=== PATIENT | female | born 1975 | race Caucasian/White ===

== ENCOUNTER → 2018-04-17 17:04 | Outpatient (CLI) | payer OTHER, SELFPAY ==
[2018-04-17 17:26] LABS: Absolute Lymphocyte Count 1.41 X10^3/ul (0.83-4.51); Absolute Neutrophil Count 4.9 X10^3/uL (2.0-7.7); Basophil# 0.02 X10^3/uL; Basophil% 0.3 % (0-1); Eosinophil# 0.19 X10^3/uL; Eosinophils% 2.6 % (0-5); Hemoglobin 13.8 g/dl (12.0-15.0); Lymphocyte # 1.41 X10^3/ul (4.0); Lymphocyte % 19.5 % (19-41); Mean Corp Hgb Conc 34.5 g/gl (32-36); Mean Corpuscular Hgb 31.9 pg (27.0-32.0); Mean Corpuscular Volume 92.6 fL (81-99); Mean Platelet Vol. 11.4 fl (6.2-12.0); Monocyte% 9.7 % (0-10); Neutrophil % 67.8 % (47-70); POSITIVE COUNT NO; POSITIVE DIFFERENTIAL NO; POSITIVE MORPHOLOGY NO; Platelet Count 200 K/mm3 (150-450); RBC Distribution Width CV 12.4 % (11.6-14.6); RBC Distribution Width SD 41.3 fl (35.1-43.9); Red Blood Count 4.32 M/mm3 (4.2-5.4); White Blood Count 7.2 K/mm3 (4.4-11.0)
[2018-04-17 19:16] LABS: HIV - WCH Non-Reactive (Nonreactive); Rubella IgG 45.4 IU/mL
[2018-04-17 22:26] LABS: Chlamydia Trachomatis by PCR Negative (Negative); Neisserai gonorrhoeae by PCR Negative (Negative); Probe Check PASS; Sample Adequacy Control PASS; Specimen Processing Control PASS
[2018-04-19 03:51] LABS: Rapid Plasmin Reagin (RPR) NONREACTIVE (NONREACTIVE)
[2018-04-19 10:29] LABS: HEPATITIS B SURFACE AG Negative (Negative)
== END ==
PROVIDERS: Family Provider Family Medicine; PCP Family Medicine; Referring Provider Obstetrics & Gynecology; Visit Provider Obstetrics & Gynecology
DX: Z34.90 Encounter for supervision of normal pregnancy, unspecified, unspecified trimester (principal)
CPT/HCPCS: 36415; 85025; 86592; 86703; 86762; 86850; 86870; 86900; 87086; 87340; 87491; 87591

== ENCOUNTER → 2018-04-25 16:15 | Outpatient (CLI) | payer OTHER, SELFPAY ==
[2018-04-17 16:21] VITALS: BMI 23.8
== END ==
PROVIDERS: Family Provider Family Medicine; PCP Family Medicine; Referring Provider Obstetrics & Gynecology; Visit Provider Obstetrics & Gynecology
DX: O36.1990 Maternal care for other isoimmunization, unspecified trimester, not applicable or unspecified (principal); Z3A.00 Weeks of gestation of pregnancy not specified
CPT/HCPCS: 36415

== ENCOUNTER → 2018-06-12 10:54 | Outpatient (CLI) | payer OTHER, SELFPAY ==
[2018-06-12 10:13] VITALS: BMI 24.7
[2018-06-12 13:03] LABS: Absolute Lymphocyte Count 0.85 X10^3/ul (0.83-4.51); Absolute Neutrophil Count 6.2 X10^3/uL (2.0-7.7); Basophil# 0.01 X10^3/uL; Basophil% 0.1 % (0-1); Eosinophil# 0.23 X10^3/uL; Eosinophils% 2.9 % (0-5); Hematocrit 38.8 % (37-47); Hemoglobin 13.2 g/dl (12.0-15.0); Lymphocyte # 0.85 X10^3/ul (4.0); Lymphocyte % 10.6 % (19-41); Mean Corpuscular Hgb 31.4 pg (27.0-32.0); Mean Corpuscular Volume 92.2 fL (81-99); Mean Platelet Vol. 11.7 fl (6.2-12.0); Monocyte# 0.72 X10^3/uL; Neutrophil # 6.18 X10^3/uL (2.7-7.7); Neutrophil % 77.3 % (47-70); POSITIVE COUNT NO; POSITIVE DIFFERENTIAL NO; POSITIVE MORPHOLOGY NO; Platelet Count 175 K/mm3 (150-450); RBC Distribution Width CV 12.8 % (11.6-14.6); Red Blood Count 4.21 M/mm3 (4.2-5.4)
== END ==
PROVIDERS: Family Provider Family Medicine; PCP Family Medicine; Referring Provider Obstetrics & Gynecology; Visit Provider Obstetrics & Gynecology
DX: O36.1990 Maternal care for other isoimmunization, unspecified trimester, not applicable or unspecified (principal); Z3A.00 Weeks of gestation of pregnancy not specified
CPT/HCPCS: 36415; 85025

== ENCOUNTER → 2018-08-16 15:59 | Outpatient (CLI) | payer OTHER, SELFPAY ==
[2018-08-16 15:41] VITALS: BMI 27.4
[2018-08-16 17:33] LABS: Absolute Lymphocyte Count 1.35 X10^3/ul (0.83-4.51); Absolute Neutrophil Count 5.2 X10^3/uL (2.0-7.7); Basophil# 0.01 X10^3/uL; Basophil% 0.1 % (0-1); Eosinophil# 0.34 X10^3/uL; Eosinophils% 4.5 % (0-5); Hematocrit 35.4 % (37-47); Hemoglobin 11.7 g/dl (12.0-15.0); Lymphocyte # 1.35 X10^3/ul (4.0); Lymphocyte % 17.8 % (19-41); Mean Corp Hgb Conc 33.1 g/gl (32-36); Mean Corpuscular Volume 96.7 fL (81-99); Mean Platelet Vol. 11.5 fl (6.2-12.0); Monocyte# 0.71 X10^3/uL; Monocyte% 9.4 % (0-10); Neutrophil # 5.15 X10^3/uL (2.7-7.7); Neutrophil % 68.1 % (47-70); POSITIVE COUNT NO; POSITIVE DIFFERENTIAL NO; POSITIVE MORPHOLOGY NO; Platelet Count 183 K/mm3 (150-450); RBC Distribution Width CV 12.9 % (11.6-14.6); RBC Distribution Width SD 43.4 fl (35.1-43.9); Red Blood Count 3.66 M/mm3 (4.2-5.4); White Blood Count 7.6 K/mm3 (4.4-11.0)
[2018-08-16 17:41] LABS: Glucose Challenge Gest 1H 50g 131 mg/dL (70-140)
== END ==
PROVIDERS: Family Provider Family Medicine; PCP Family Medicine; Referring Provider Obstetrics & Gynecology; Visit Provider Obstetrics & Gynecology
DX: O36.1990 Maternal care for other isoimmunization, unspecified trimester, not applicable or unspecified (principal); Z3A.00 Weeks of gestation of pregnancy not specified
CPT/HCPCS: 36415; 82950; 85025

== ENCOUNTER → 2018-09-11 15:43 | Outpatient (CLI) | payer OTHER, SELFPAY ==
[2018-08-30 15:13] VITALS: BMI 27.4
== END ==
PROVIDERS: Family Provider Family Medicine; PCP Family Medicine; Referring Provider Obstetrics & Gynecology; Visit Provider Obstetrics & Gynecology
DX: O36.1990 Maternal care for other isoimmunization, unspecified trimester, not applicable or unspecified (principal); Z3A.00 Weeks of gestation of pregnancy not specified
CPT/HCPCS: 36415; 86850; 86870

== ENCOUNTER → 2018-10-04 11:26 | Outpatient (CLI) | payer OTHER, SELFPAY ==
[2018-09-27 15:12] VITALS: BMI 27.4
== END ==
PROVIDERS: Family Provider Family Medicine; PCP Family Medicine; Referring Provider Obstetrics & Gynecology; Visit Provider Obstetrics & Gynecology
DX: O36.1990 Maternal care for other isoimmunization, unspecified trimester, not applicable or unspecified (principal); Z3A.00 Weeks of gestation of pregnancy not specified

== ENCOUNTER → 2018-10-25 17:50 | Outpatient (CLI) | payer OTHER, SELFPAY ==
[2018-10-25 15:45] VITALS: BMI 27.4
== END ==
PROVIDERS: Family Provider Family Medicine; PCP Family Medicine; Referring Provider Obstetrics & Gynecology; Visit Provider Obstetrics & Gynecology
DX: Z34.93 Encounter for supervision of normal pregnancy, unspecified, third trimester (principal)
CPT/HCPCS: 87081

== ENCOUNTER 2018-11-19 07:02 | Inpatient (IN) | payer OTHER, SELFPAY ==
[2018-11-18 15:51] VITALS: BMI 30.4
[2018-11-19] MEDS: Lactated Ringers 1,000 ML 50 ML IV ×2 (07:30→10:45)
[2018-11-19 07:44] LABS: Absolute Lymphocyte Count 1.02 X10^3/ul (0.83-4.51); Basophil# 0.01 X10^3/uL; Basophil% 0.2 % (0-1); Eosinophil# 0.18 X10^3/uL; Hematocrit 37.7 % (37-47); Hemoglobin 12.9 g/dl (12.0-15.0); Lymphocyte # 1.02 X10^3/ul (4.0); Lymphocyte % 17.2 % (19-41); Mean Corp Hgb Conc 34.2 g/gl (32-36); Mean Corpuscular Hgb 32.3 pg (27.0-32.0); Mean Corpuscular Volume 94.3 fL (81-99); Mean Platelet Vol. 12.3 fl (6.2-12.0); Monocyte# 0.69 X10^3/uL; Monocyte% 11.6 % (0-10); Neutrophil % 67.5 % (47-70); Platelet Count 151 K/mm3 (150-450); RBC Distribution Width CV 13.2 % (11.6-14.6); RBC Distribution Width SD 43.9 fl (35.1-43.9); White Blood Count 5.9 K/mm3 (4.4-11.0)
[2018-11-19 07:46] LABS: POSITIVE COUNT NO; POSITIVE DIFFERENTIAL NO; POSITIVE MORPHOLOGY NO
[2018-11-19] MEDS: Oxytocin 30 units/NS 500 ml 30 UNITS/500 ML IV.SOLN IV (07:53)
[2018-11-19 08:02] VITALS: BMI 29.2
[2018-11-19] MEDS: 0.9% Normal Saline 100 ML IV.SOLN. INTRA-UTER (08:06)
--- NOTE | 2018-11-19 12:47 | PCM.HP.OB ---
- Problem List (1) Anti-M isoimmunization affecting , antepartum Status: Acute Qualifiers: Fetus number: single or unspecified fetus Qualified Code(s): O36.1990 - Maternal care for other isoimmunization, unspecified trimester, not applicable or unspecified Comment: Very low titer anti m 1:4 check monthly. 2nd titer positive but too low to quantify (2) Supervision of high risk , antepartum Status: Acute Comment: PRR Edson 11/20/18 gender surprise PC Joseph, Shara Ortiz, Yolis Kunal (3) Advanced maternal age (AMA) in Status: Acute Comment: discussed genetic screening- declined. growth scan q 4 weeks after 32 and weekly nsts from 36 weeks on 10/30 growth normal (4) Status: Acute Qualifiers: Weeks of gestation: 39 weeks Qualified Code(s): Z3A.39 - 39 weeks gestation of Comment: genetic, carrier, NTD screening declined. [facility] Anatomy US-limited heart views due to position,07/15 anatomy completed normal History Date of Admission: 11/19/18 Final EDSON: 11/20/18 Gestational age: 39 Weeks and 6 Days History of this : This is a 43 year-old, at 39 weeks gestational age 6 days presents for IOL secondary to AMA. she has had a complicated by anti M antibody but it's been at the lowest possible level and no anemia documented. Surgical History: Surgical History (Last Reviewed 11/18/18 @ 15:54 by Zhanna Holley) H/O dilation and curettage Z98.890 Allergies penicillin G Allergy (Mild, Verified 11/18/18 15:51) Other Home Medications: Home Medications vitamin#30 30 mg iron-10 mg iron-folic acid 1 mg-omg3 capsule 1 cap PO DAILY cap 04/17/18 Smoking Status: Never smoker Alcohol: None Number of Fetus(es): 1 Heart Tracin moderate variability reactive no decelerations category I tracing [place]: none History Past Pregnancies: Past Pregnancies Pregancy History 6 Elective abortions Hx Para 4 Spontaneous abortions Hx # Term Pregnancies Ectopic pregnancies Hx # Pregnancies Multiple births # of living children Past Pregnancies Del. Date Name GA/Weeks Outcome Route Bth Weight Infant Gen Labor Lgth Anesthesia Del Locatn Provider FOB Unknown 2002 Joseph live - full term Saumya Unknown 2004 Diana live - full term Female Saumya Unknown 2006 Shara 40 live - full term Female [place], [place] Unknown 2009 Yolis 40 live - full term Female none [place], [place] Labs: Mom's Labs & Results 11/19/18 11/19/18 11/19/18 07:30 07:30 07:30 WBC 5.9 RBC 4.00 L Hgb 12.9 Hct 37.7 MCV 94.3 MCH 32.3 H MCHC 34.2 RDW 13.2 RDW Differential 43.9 Plt Count 151 MPV 12.3 H Immature Gran % (Auto) 0.500 Neut % (Auto) 67.5 Lymph % (Auto) 17.2 L [place] % (Auto) 11.6 H Eos % (Auto) 3.0 Baso % (Auto) 0.2 Absolute Neuts (auto) 4.0 Absolute Lymphs (auto) 1.02 Total Counted Not Reportable Blood Type A POSITIVE Antibody Screen POSITIVE H Antibody Identification ANTI-M Crossmatch See Detail Course Did the patient receive Yes care? Labs Blood Type: A RH: POSITIVE RPR/VDRL/Syphilis Nonreactive Rubella status Immune HbSAg Negative Date Done: 04/17/18 Chlamydia Negative Gonorrhea Negative HIV/AIDS Non-Reactive Group B Strep: Negative Current Obstetrical History Gestational Diabetes No Incompetent Cervix No Infertility No IUGR No Macrosomia No Hypertension/Pre-eclampsia No Placenta Previa/Abruption No PTL/PROM No Uterine anomaly No Oligohydramnios No Polyhydramnios No Multiple gestation No Past Medical History Asthma No Diabetes No Hypertension No Heart disease No Mitral valve prolapse No Neurologic/Seizure disorder/ No Migraines Kidney disease No Liver disease No Varicosities No Clotting disorders/Hx of DVT No Thyroid Dysfunction No Other medical diseases No Psychiatric disorders No Major trauma No Abnormal PAP smear Yes: scraped cervix prior to first preg. Sleep apnea No Mammogram in the last 2 years Yes: normal Social History Marital Status: Alleged father Kunal Benedict Hx Smoking No Smoking Status Never smoker Expected Infant Delivery Method: Spontaneous Vaginal Review of Systems Constitutional: Denies: Fever, Malaise Eyes: Denies: Blurred vision, Vision Change HEENT: Denies: Head Aches, Visual Changes Cardiovascular: Denies: Chest Pain, Palpitations Respiratory: Denies: Cough, Shortness of Breath, Wheezing Gastrointestinal: Denies: Abdominal Pain, Diarrhea, Nausea, Vomiting Genitourinary: Denies: Dysuria, Hematuria Musculoskeletal: Denies: Joint Pain, Muscle pain Skin: Denies: Lesions, Rash Neurological: Denies: Blurred vision, Focal weakness, Headaches Psychiatric: Denies: Anxiety, Depression Endocrine: Denies: Heat/ Cold Intolerance Hematologic/ Lymphatic: Denies: Easy Bruising, Easy Bleeding Physical Exam General: Alert, Cooperative, No apparent distress HEENT: Atraumatic, Normocephalic. Negative for: Thyromegaly, Lymphadenopathy Cardiovascular: Regular rate Lungs: Normal air movement Abdomen: Soft, Non Tender, Gravid Neurological: Deep Tendon Reflexes 2+/4 and Symmetrical, Neuro grossly intact. Negative for: Clonus SPEECH LANGUAGE PATHOLOGIST ASSISTANT: Normal external genitalia. Negative for: Vulvar lesions Estimated gestational size: Appropriate for gestational size Presentation: Cephalic Cervix Dilation (cm): 1.5 Station: -3 Effacement (%): 20 Assessment/Plan All Active Problems (Last Reviewed 11/18/18 @ 15:54 by Zhanna Holley) Anti-M isoimmunization affecting , antepartum (Acute) Supervision of high risk , antepartum (Acute) Advanced maternal age (AMA) in (Acute) (Acute) This is a 43 year-old, at 39 weeks gestational age presents IOL AMA Patient presents IOL, plan management for , pitocin/AROM after escoto bulb. Pain management: plans epidural. GBS negative Management of any complications: anti M titer- low level. I have reviewed the [facility] and made any clinically relevant updates.
--- NOTE | 2018-11-19 16:39 | CHAPLAIN ---
Type of Pastoral Visit _x__ Initial Visit ___ Follow-up Visit ___ On-call Visit ___ General Patient Visit ___ Spiritual Assessment ___ Family Conference ___ Bereavement ___ Rapid Response ___ Code Blue ___ Other (describe below) Pastoral Care Referral From _x__ Patient _x__ Family ___ Nurse ___ Physician ___ Label Stitcher ___ Perch Machine Inspector ___ Other (describe below) Sacrament/Intervention ___ Active listening ___ Anointing ___ Anabaptism ___ Bereavement ___ Communion ___ Hayde exploration ___ ___ Life review _x__ Prayer ___ Reconciliation ___ Sacrament of Sick _x__ Supportive presence ___ Wedding ___ Other (describe below) Pastoral Comments
[2018-11-19] MEDS: fentaNYL-bupivacaine (epidural) 100 ML BAG EPIDURAL (17:00)
[2018-11-19] MEDS: Oxytocin 30 units/NS 500 ml 30 UNITS/500 ML IV.SOLN 334 UNITS IV (19:50)
--- NOTE | 2018-11-19 19:58 | PCM.OPRPT ---
Problem List (1) Anti-M isoimmunization affecting , antepartum Status: Acute Qualifiers: Fetus number: single or unspecified fetus Qualified Code(s): O36.1990 - Maternal care for other isoimmunization, unspecified trimester, not applicable or unspecified Comment: Very low titer anti m 1:4 check monthly. 2nd titer positive but too low to quantify (2) Supervision of high risk , antepartum Status: Acute Comment: PRR Edson 11/20/18 gender surprise PC Joseph, Shara Ortiz, Yolis Kunal (3) Advanced maternal age (AMA) in Status: Acute Comment: discussed genetic screening- declined. growth scan q 4 weeks after 32 and weekly nsts from 36 weeks on 10/30 growth normal (4) Status: Acute Qualifiers: Weeks of gestation: 39 weeks Qualified Code(s): Z3A.39 - 39 weeks gestation of Comment: genetic, carrier, NTD screening declined. [facility] Anatomy US-limited heart views due to position,2/ anatomy completed normal Vaginal Delivery Maternal Presentation: Medically Indicated Induction iol ama Amniotic Membrane Rupture Type: Artificial Amniotic Fluid Description: Clear Final EDSON: 11/20/18 Gestational age: 39 weeks 6 days Date of Procedure: 11/19/18 Pre-Operative Diagnosis: iol ama Post-Operative Diagnosis: iol ama Surgery/ Procedure Performed: Spontaneous Vaginal Delivery Type of Anesthesia: Epidural Description of Procedure: Patient began pushing and delivered the head in the VAMSHI presentation. The head was delivered atraumatically. The anterior and posterior shoulders delivered without complication followed by the rest of the infant and the infant was placed on the maternal abdomen. Delayed cord clamping was employed for approximately 60 seconds. Cord was clamped and cut and gentle traction was applied to the cord and the placenta delivered spontaneously immediately following it was noted to be intact with three-vessel cord. The perineum and vagina were inspected and noted to have no laceration. Patient and tolerated delivery well. Presentation: VAMSHI Placental Delivery Description: Spontaneous Placenta Disposition: [facility] Cord Vessel Description: 3 Vessels Cord Entanglement: None Infant A gender: Male Episiotomy Description: None Laceration: None Medications given after delivery: IV Pitocin Complications: None
[2018-11-19] MEDS: Oxytocin 30 units/NS 500 ml 30 UNITS/500 ML IV.SOLN 167 UNITS IV (20:21)
[2018-11-19] MEDS: Naproxen 250 MG Tablet 500 MG PO (22:38)
[2018-11-20 00:54] VITALS: BP 119/67; PULSE 80; RESP 18; TEMP 36.4
[2018-11-20] MEDS: Acetaminophen 500 MG Tablet 1000 MG PO (01:28)
[2018-11-20 04:59] VITALS: BP 128/67; PULSE 75; RESP 18; TEMP 36.3
--- NOTE | 2018-11-20 07:43 | PCM.PN.OB ---
Subjective: doing well no complaints pain controlled no CP SOB N V ambulating well tolerating po lochia moderate, going well - Physical Exam General: Alert, Oriented x3 Abdomen: Soft, Non Tender, Non-Distended, - - FF below U Vital Signs Temp Pulse Resp BP 97.3 F L 75 18 128/67 H 11/20/18 04:59 11/20/18 04:59 11/20/18 04:59 11/20/18 04:59 Oxygen Delivery Method Room Air Weight: 187 lb 2.759 oz Body Mass Index (BMI) 29.2 Intake and Output for Last 24 Hours 11/18/18 11/19/18 11/20/18 23:59 23:59 23:59 Intake Total 2640 / 2640 Output Total 900 / 900 400 / 400 Balance 1740 / 1740 -400 / -400 Laboratory Tests Past 24 Hrs 11/19/18 11/19/18 11/19/18 07:30 07:30 07:30 WBC 5.9 RBC 4.00 L Hgb 12.9 Hct 37.7 MCV 94.3 MCH 32.3 H MCHC 34.2 RDW 13.2 RDW Differential 43.9 Plt Count 151 MPV 12.3 H Immature Gran % (Auto) 0.500 Neut % (Auto) 67.5 Lymph % (Auto) 17.2 L [place] % (Auto) 11.6 H Eos % (Auto) 3.0 Baso % (Auto) 0.2 Absolute Neuts (auto) 4.0 Absolute Lymphs (auto) 1.02 Total Counted Not Reportable Blood Type A POSITIVE Antibody Screen POSITIVE H Antibody Identification ANTI-M Crossmatch See Detail Medical Necessity - Tobacco Use Smoking Status: Never smoker Assessment/Plan All Active Problems (Last Reviewed 11/18/18 @ 15:54 by Zhanna oHlley) Anti-M isoimmunization affecting , antepartum (Acute) Supervision of high risk , antepartum (Acute) Advanced maternal age (AMA) in (Acute) (Acute) s/p PPD # 1 1. routine post delivery care 2. breast feeding- support given 3. rh positive 4. rubella immune 5. Monitor anti M antibody status prn
[2018-11-20 08:00] VITALS: BP 102/62; PULSE 78; RESP 12; TEMP 36.9
[2018-11-20 11:56] VITALS: BP 107/63; PULSE 83; RESP 14; TEMP 37.4
[2018-11-20 15:27] VITALS: BP 104/57; PULSE 72; RESP 14; TEMP 37.4
--- NOTE | 2018-11-20 16:48 | CHAPLAIN ---
Type of Pastoral Visit ___ Initial Visit _x__ Follow-up Visit ___ On-call Visit ___ General Patient Visit ___ Spiritual Assessment ___ Family Conference ___ Bereavement ___ Rapid Response ___ Code Blue ___ Other (describe below) Pastoral Care Referral From _x__ Patient _x__ Family ___ Nurse ___ Physician ___ Sales And Events Coordinator ___ Concierge ___ Other (describe below) Sacrament/Intervention _x__ Active listening ___ Anointing ___ Jewish ___ Bereavement ___ Communion ___ Hayde exploration ___ ___ Life review _x__ Prayer ___ Reconciliation ___ Sacrament of Sick ___ Supportive presence ___ Wedding ___ Other (describe below) Pastoral Comments
[2018-11-20 20:20] VITALS: BP 105/62; PULSE 70; RESP 16; TEMP 36.6; O2SAT 99
[2018-11-21 01:30] VITALS: BP 129/68; PULSE 69; RESP 18; TEMP 37.1
--- NOTE | 2018-11-21 07:41 | PCM.PN.OB ---
Subjective: doing well no complaints pain controlled no CP SOB N V ambulating well tolerating po lochia moderate, going well - Physical Exam General: Alert, Oriented x3 Abdomen: Soft, Non Tender, Non-Distended, - - FF at U Vital Signs Temp Pulse Resp BP Pulse Ox 98.7 F 69 18 129/68 H 99 11/21/18 01:30 11/21/18 01:30 11/21/18 01:30 11/21/18 01:30 11/20/18 20:20 Oxygen Delivery Method Room Air Weight: 187 lb 2.759 oz Body Mass Index (BMI) 29.2 Intake and Output for Last 24 Hours 11/19/18 11/20/18 11/21/18 23:59 23:59 23:59 Intake Total 2640 / 2640 Output Total 900 / 900 400 / 400 Balance 1740 / 1740 -400 / -400 Medical Necessity - Tobacco Use Smoking Status: Never smoker Assessment/Plan All Active Problems (Last Reviewed 11/18/18 @ 15:54 by Zhanna Holley) Anti-M isoimmunization affecting , antepartum (Acute) Supervision of high risk , antepartum (Acute) Advanced maternal age (AMA) in (Acute) (Acute)
--- NOTE | 2018-11-21 07:44 | DCINST_ITS ---
Additional Instructions: If you experience any of the following, contact your healthcare provider. * Bleeding that soaks a pad every hour for 2 hours * Fever 100.4 or higher * Unrelieved incision or abdominal pain * Swelling, redness, discharge or bleeding from your incision or episiotomy site * Your incision begins to separate * Problems urinating (including inability to urinate or burning while urinating). * Visual changes * Severe headache * Flu-like symptoms * Pain or redness in one of both of your breasts * Pain, warmth, tenderness or swelling in your legs, especially the calf area * Frequent nausea and vomiting * Symptoms of depression or anxiety If you experience any of the following, call 911 or go to the nearest Emergency Room. * Chest pain * Problems breathing * Seizure activity * Partial or complete paralysis of a body part, slurred speech, weakness or drooping of the face, or a sudden inability to walk or hold your balance Allergies/Adverse Reactions: Allergies penicillin G Allergy (Mild, Verified 11/18/18 15:51) Other Medications to take at Discharge vitamin#30 30 mg iron-10 mg iron-folic acid 1 mg-omg3 capsule 1 cap PO DAILY cap 04/17/18 Primary Care Physician: Dante Fried MD [Primary Care Provider] - Test Results: Test results from this visit will be discussed in further detail at your follow- up appointment, if applicable.
--- NOTE | 2018-11-21 07:44 | PCM.DCVAG ---
Additional Instructions: If you experience any of the following, contact your healthcare provider. Bleeding that soaks a pad every hour for 2 hours Fever 100.4 or higher Unrelieved incision or abdominal pain Swelling, redness, discharge or bleeding from your incision or episiotomy site Your incision begins to separate Problems urinating (including inability to urinate or burning while urinating). Visual changes Severe headache Flu-like symptoms Pain or redness in one of both of your breasts Pain, warmth, tenderness or swelling in your legs, especially the calf area Frequent nausea and vomiting Symptoms of depression or anxiety If you experience any of the following, call 911 or go to the nearest Emergency Room. Chest pain Problems breathing Seizure activity Partial or complete paralysis of a body part, slurred speech, weakness or drooping of the face, or a sudden inability to walk or hold your balance Allergies/Adverse Reactions: Allergies penicillin G Allergy (Mild, Verified 11/18/18 15:51) Other Medications to take at Discharge vitamin#30 30 mg iron-10 mg iron-folic acid 1 mg-omg3 capsule 1 cap PO DAILY cap 04/17/18 Primary Care Physician: Dante Fried MD [Primary Care Provider] - Test Results: Test results from this visit will be discussed in further detail at your follow-up appointment, if applicable.
[2018-11-21 08:00] VITALS: BP 121/62; PULSE 78; RESP 17; TEMP 36.7; O2SAT 99
== END 2018-11-21 10:10 | disposition home or self-care (01) | DRG 807 ==
PROVIDERS: Admitting Provider Obstetrics & Gynecology; Family Provider Family Medicine; PCP Family Medicine; Referring Provider Obstetrics & Gynecology; Visit Provider Obstetrics & Gynecology
DX: O36.1930 Maternal care for other isoimmunization, third trimester, not applicable or unspecified (principal); Z3A.39 39 weeks gestation of pregnancy; Z37.0 Single live birth
CPT/HCPCS: 59025; 59050; 85025; 86850; 86870; 86900; 86902; 86920; 86922; 99218; J7120; G0378

== ENCOUNTER → 2019-01-08 17:52 | Outpatient (CLI) | payer OTHER, SELFPAY ==
[2019-01-08 08:56] VITALS: BMI 29.2
[2019-01-14 16:58] LABS: HPV APTIMA, High Risk Negative (Negative)
== END ==
PROVIDERS: Family Provider Family Medicine; PCP Family Medicine; Referring Provider Obstetrics & Gynecology; Visit Provider Obstetrics & Gynecology
DX: Z12.4 Encounter for screening for malignant neoplasm of cervix (principal)
CPT/HCPCS: 87624; 88175; G0145

== ENCOUNTER → 2020-01-29 09:54 | Outpatient (CLI) | payer OTHER, SELFPAY ==
[2020-01-15 08:37] VITALS: BMI 29.2
[2020-01-29 11:35] LABS: Vitamin D,25 Hydroxy 41.3 ng/mL
[2020-01-29 11:54] LABS: ALB/GLOB Ratio 1.1 RATIO (0.9-2.4); AST(SGOT) 18 U/L (15-37); Alanine Aminotransfer ALT/SGPT 17 U/L (13-56); Albumin, Serum 3.9 g/dL (3.2-5.0); Alkaline Phosphatase 48 U/L (45-117); Anion Gap 4 (5-15); BUN 14 mg/dL (7-18); BUN/Creat Ratio 16.5 RATIO (10-20); Calcium,Total 8.6 mg/dL (8.5-10.1); Chloride 107 mmol/L (98-107); Cholesterol 198 mg/dL (200); Creatinine, Serum 0.85 mg/dL (0.55-1.02); EST Glomerular Filtration Rate 77 mL/min (>60); Est Glom Filt Rate - Afr Amer 93 mL/min (>60); Globulin 3.6 g/dL (2.2-4.2); Glucose 83 mg/dL (74-106); High Density Lipoprotein 66 mg/dL; Potassium 3.9 mmol/L (3.5-5.1); Protein, Total 7.5 g/dL (6.4-8.2); Sodium Level 139 mmol/L (136-145); Triglycerides 73 mg/dL; Very Low Density Lipoprotein 15 mg/dL (5-40)
--- NOTE | 2020-01-29 12:37 | BI_ITS ---
MAMMOGRAPHY - BILATERAL SCREENING 3-D TOMOSYNTHESIS REASON FOR EXAM: Female, 45 years old. Annual screening mammogram. PERTINENT HISTORY: 12/28/2016, 12/14/2015. TECHNIQUE: 2-D mammograms and 3-D Tomosynthesis of the breast (s) were performed. CAD was performed. COMPARISON: None. FINDINGS: The breast composition is Scattered benign calcifications are seen. No dense spiculated masses or suspicious microcalcifications are identified. No architectural distortion is identified. There is no skin thickening or retraction. There has been no significant change since the prior study. BI/SCREEN MAMM (CAD) W/MARIA L BILAT IMPRESSION: No mammographic signs of malignancy. Routine yearly mammograms recommended. ASSESSMENT CATEGORY: BIRADS Category 2: Benign. A letter regarding these results will be sent to the patient by the facility within 30 days. FOLLOW UP RECOMMENDATION: Yearly follow up mammogram recommended. (A) Approximately 10% of breast cancers are not detected by mammography. A normal mammogram should not delay biopsy of a clinically suspicious abnormality. Electronically Signed: Austin Nunez MD at 17:43 EDT , Service support ,
== END ==
PROVIDERS: PCP Family Medicine; Referring Provider Obstetrics & Gynecology; Visit Provider Obstetrics & Gynecology
DX: Z12.31 Encounter for screening mammogram for malignant neoplasm of breast (principal); Z13.220 Encounter for screening for lipoid disorders; Z13.21 Encounter for screening for nutritional disorder; Z13.29 Encounter for screening for other suspected endocrine disorder
CPT/HCPCS: 36415; 77063; 77067; 80053; 80061; 82306; 84443

== ENCOUNTER → 2021-02-17 11:53 | Outpatient (CLI) | payer OTHER, SELFPAY ==
[2020-01-15 08:37] VITALS: BMI 29.2
--- NOTE | 2021-02-17 11:55 | BI_ITS ---
MAMMOGRAPHY - BILATERAL SCREENING REASON FOR EXAM: Female, 46 years old. Routine annual screening examination. PERTINENT HISTORY: Non-contributory. TECHNIQUE: Digital bilateral breast maria l (3D mammographic acquisition) in the CC and MLO projections. 2-D mediolateral oblique (MLO) and craniocaudad (CC) views of both breasts were obtained. CAD: Full Field Digital Mammography with Computer Added Detection was performed. COMPARISON: Comparison is made with prior study 01/29/2020 and 12/28/2016. FINDINGS: Breast Composition: The breasts are heterogeneously dense, which may obscure small masses. There are no dominant masses or suspicious calcifications. Stable small benign appearing bilateral axillary lymph nodes. No other significant abnormalities are identified. There has been no significant change since the prior study. BI/SCRN MAMM (CAD)W/MARIA L BILAT IMPRESSION: Stable bilateral screening mammogram. Yearly follow-up mammogram recommended. (A) ASSESSMENT CATEGORY: BIRADS Category 2: Benign. A letter regarding these results will be sent to the patient by the facility within 30 days. Approximately 10% of breast cancers are not detected by mammography. A normal mammogram should not delay biopsy of a clinically suspicious abnormality. [id number] Electronically Signed: Harry Forman MD at 12:39 EDT , Service support ,
== END ==
PROVIDERS: PCP Family Medicine; Referring Provider Obstetrics & Gynecology; Visit Provider Obstetrics & Gynecology
DX: Z12.31 Encounter for screening mammogram for malignant neoplasm of breast (principal)
CPT/HCPCS: 77063; 77067

== ENCOUNTER → 2022-04-12 | Outpatient (CLI) | payer OTHER, SELFPAY ==
--- NOTE | 2022-04-12 12:47 | BI_ITS ---
MAMMOGRAPHY - BILATERAL SCREENING REASON FOR EXAM: Female, 47 years old. Routine annual screening examination. PERTINENT HISTORY: Non-contributory. TECHNIQUE: Digital bilateral breast maria l (3D mammographic acquisition) in the CC and MLO projections. 2-D mediolateral oblique (MLO) and craniocaudad (CC) views of both breasts were obtained. CAD: Full Field Digital Mammography with Computer Added Detection was performed. COMPARISON: Comparison is made with prior study dated 02/17/2021 and 01/29/2020. FINDINGS: Breast Composition: The breasts are heterogeneously dense, which may obscure small masses. There are no dominant masses or suspicious calcifications. No other significant abnormalities are identified. There has been no significant change since the prior study. BI/SCRN MAMM (CAD)W/MARIA L BILAT IMPRESSION: Stable bilateral screening mammogram. Yearly follow-up mammogram recommended. (A) ASSESSMENT CATEGORY: BIRADS Category 1: Negative. A letter regarding these results will be sent to the patient by the facility within 30 days. Approximately 10% of breast cancers are not detected by mammography. A normal mammogram should not delay biopsy of a clinically suspicious abnormality. [id number] Electronically Signed: Harry Forman MD at 13:36 EDT ,
== END | disposition home or self-care (01) ==
LOC: OPBI 12:46
PROVIDERS: PCP Family Medicine; Visit Provider Obstetrics & Gynecology
DX: Z12.31 Encounter for screening mammogram for malignant neoplasm of breast (principal)
CPT/HCPCS: 77063; 77067

== ENCOUNTER 2023-07-11 10:46 | Emergency (ER) | payer OTHER, SELFPAY ==
[2023-07-11 10:47] VITALS: BP 118/71; PULSE 75; RESP 16; TEMP 36.8; O2SAT 100; BMI 23.8
[2023-07-11 12:23] LABS: Absolute Lymphocyte Count 0.77 X10^3/uL (0.83-4.51); Absolute Neutrophil Count 7.8 X10^3/uL (2.0-7.7); Basophil# 0.03 X10^3/uL; Basophil% 0.3 % (0-1); Eosinophil# 0.07 X10^3/uL; Eosinophils% 0.8 % (0-5); Hematocrit 44.1 % (37-47); Hemoglobin 14.8 g/dL (12.0-15.0); Lymphocyte # 0.77 X10^3/ul (0.83-4.51); Lymphocyte % 8.4 % (19-41); Mean Corp Hgb Conc 33.6 g/dL (32-36); Mean Corpuscular Volume 92.5 fL (81-99); Mean Platelet Vol. 11.3 fl (6.2-12.0); Monocyte# 0.47 X10^3/uL; Monocyte% 5.1 % (0-10); NRBC Flagged by Analyzer 0 % (0-5); Neutrophil # 7.81 X10^3/uL (2.7-7.7); Neutrophil % 85.1 % (47-70); Platelet Count 217 K/mm3 (150-450); RBC Distribution Width CV 12.2 % (11.6-14.6); RBC Distribution Width SD 41.6 fl (35.1-43.9); Red Blood Count 4.77 M/mm3 (4.2-5.4); White Blood Count 9.2 K/mm3 (4.4-11.0)
[2023-07-11 12:36] LABS: Prothrombin Time (Protime)PT. 13.6 SECONDS (11.7-14.9)
[2023-07-11 12:37] LABS: Anion Gap 3 (5-15); BUN 10 mg/dL (7-18); BUN/Creat Ratio 14.7 RATIO (10-20); Calcium,Total 8.6 mg/dL (8.5-10.1); Chloride 105 mmol/L (98-107); Creatinine, Serum 0.68 mg/dL (0.55-1.02); EST Glomerular Filtration Rate 98 mL/min (>60); Est Glom Filt Rate - Afr Amer 119 mL/min (>60); Estimated Creatinine Clearance 98.39 ml/min; Glucose 102 mg/dL (74-106); Partial Thromboplast Time 29.7 Seconds (24.1-36.2); Sodium Level 133 mmol/L (136-145)
--- NOTE | 2023-07-11 13:00 | RAD_ITS ---
STUDY: X-RAY CHEST REASON FOR EXAM: Female, 48 years old. Stroke TECHNIQUE: Single AP portable view of the chest. COMPARISON: None. FINDINGS: The lungs are clear and expanded. There is no demonstrated pleural abnormality. Normal size heart. Normal mediastinum and zehra. Normal visualized pulmonary arteries. Normal visualized aortic arch and descending thoracic aorta. Normal visualized thoracic spine. Normal visualized ribs, clavicles, and shoulders. There is no demonstrated abnormality of the visualized soft tissue structures of the upper abdomen. RAD/Chest 1 View (Portable) IMPRESSION: Normal x-ray examination of the chest. Electronically Signed: Harry Forman MD at 13:16 EST ,
--- NOTE | 2023-07-11 13:04 | NURSING ---
NO OLD EKGS
[2023-07-11 13:09] VITALS: O2SAT 100
[2023-07-11 14:00] VITALS: RESP 16
[2023-07-11] MEDS: Meclizine HCl 25 MG Tablet PO (14:58)
[2023-07-11] MEDS: Ondansetron ODT 4 MG Tablet PO (14:59)
[2023-07-11 15:00] VITALS: RESP 16
--- NOTE | 2023-07-11 15:02 | EX.ED.DYSGE1 ---
HPI History of Present Illness Chief Complaint: Dizziness Informant: patient and spouse/S.O. Narrative Narrative: 48-year-old female presenting to the emergency room with lightheadedness/dizziness/off-balance. Patient states that she frequently gets earwax that needs to be irrigated out. She states she went to urgent care to have this done and was feeling lightheaded/dizzy. She states that they attempted to irrigate it and got significantly worse. She feels like the ear right ear is now completely occluded. No vomiting but does have some nausea. No headache. No visual disturbance. notes that there has been times on vacation where she is getting water in the ear that she has described a similar sensation. 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 ROS ROS ED ROS Narrative Feeling of lightheaded/dizzy/wobbly Constitutional Constitutional ED: Denies chills, fever(s) or weight loss Eyes Eyes: Denies change in vision or diplopia ENT ENT ED: Reports other Details: Decreased hearing right ear cerumen impaction ; Denies ear pain, rhinorrhea or sore throat Cardiovascular Cardiovascular: Denies chest pain, orthopnea, palpitations or racing heartbeat Respiratory/Chest Respiratory/Chest: Denies cough, dyspnea or orthopnea Gastrointestinal Gastrointestinal: Denies abdominal pain, diarrhea, nausea or vomiting Genitourinary Genitourinary ED: Denies dysuria, hematuria or urinary frequency Musculoskeletal Musculoskeletal: Denies arthralgias or myalgias Integumentary Denies abscess or rash Neurologic Neurologic: Denies headache(s) or weakness Psychiatric Psychiatric: Denies anxiety, depression, suicidal ideation or suicidal thoughts Endocrine Endocrinology: Denies polydipsia, polyphagia or polyuria Allergic/Immunologic Allergic/Immunologic ED: Denies mouth swelling, tongue swelling or urticaria EXAM Physical Exam Narrative Exam Narrative: Patient is able to lie in the bed with her eyes open and turn her head and speak. She can sit up states that up seems to make her lightheadedness worse. Const Vital Signs: 07/11/23 10:47 07/11/23 13:09 07/11/23 14:00 Temperature 98.2 F Temperature Source Temporal Pulse Rate 75 Respiratory Rate 16 16 Blood Pressure 118/71 Blood Pressure Mean 86 Pulse Ox 100 100 Oxygen Delivery Method Room Air Room Air Positive well nourished and well developed General Appearance ED: well developed HEENT Reports normocephalic, head/scalp atraumatic and moist mucous membranes HEENT Narrative: Bilateral cerumen impaction Eyes PERRL and EOMs intact bilaterally Neck no lymphadenopathy, supple and no JVD Resp normal respiratory effort and clear to auscultation bilaterally Cardio regular rate, regular rhythm and no murmurs GI normal to inspection, nondistended, normoactive bowel sounds and non-tender Palpation: soft Back/Spine no CVA tenderness and normal ROM Extremity normal to inspection General Extremety ED: Negative for edema General Extremity: Negative for edema Neuro oriented x3 and CN's II-XII intact bilaterally Neuro Narrative: Patient is not ataxic with walking though she states she does feel little unsteady. I do not appreciate any nice diagnosis. Sensorium / Orientation: alert Motor Exam: strength 5/5 throughout Psych mental status grossly normal Mood & Affect: Negative for depressed or tearful Skin no rashes or lesions noted and no wounds MDM MDM MDM Narrative Medical decision making narrative: nursing protocol did place orders which showed basically normal blood work CBC BMP and coags. I did warm water irrigation using 18-gauge Angiocath 20 cc syringe. This resulted in expression of large amount of cerumen. A total of 2 flushes per side was needed. The tympanic membranes were intact bilaterally. No evidence of otitis externa. She states she felt an immediate improvement in her symptoms still feels a little bit off. I ambulated the patient personally and she did well. Will give her a dose of Antivert and Zofran while she awaits her . I would anticipate a discharge. History & Record Review Discussion w/independent historian: Patient and Significant other Lab Data Labs: Laboratory Results - last 24 hr 07/11/23 12:15 WBC 9.2 RBC 4.77 Hgb 14.8 Hct 44.1 MCV 92.5 MCH 31.0 MCHC 33.6 RDW Std Deviation 41.6 RDW Coeff of Renzo 12.2 Plt Count 217 MPV 11.3 Immature Gran % (Auto) 0.300 Neut % (Auto) 85.1 H Lymph % (Auto) 8.4 L [place] % (Auto) 5.1 Eos % (Auto) 0.8 Baso % (Auto) 0.3 Absolute Neuts (auto) 7.8 H Absolute Lymphs (auto) 0.77 L Nucleated RBC % 0 PT 13.6 INR 1.0 APTT 29.7 Sodium 133 L Potassium 4.0 Chloride 105 Carbon Dioxide 25.0 Anion Gap 3 L BUN 10 Creatinine 0.68 Estim Creat Clear Calc 98.39 Est GFR (MDRD) Af Amer 119 Est GFR (MDRD) Non-Af 98 BUN/Creatinine Ratio 14.7 Glucose 102 Calcium 8.6 Radiography Diagnostic Testing: Clinical Impression(s) from Imaging Studies Chest X-Ray 07/11/23 13:00 IMPRESSION: Normal x-ray examination of the chest. Electronically Signed: Harry Forman MD at 13:16 EST Reading Location ID and State: [facility] / [place] , Service support , EKG Initial EKG: Attestation: I personally reviewed and interpreted this EKG as follows: Comments: Normal sinus rhythm with a ventricular rate of 64 bpm Discharge Plan Triage Chief Complaint: Dizziness ED Provider: Lex Cottrell Dx/Rx/DC Orders Prescriptions: No Action NK Primary Care Provider: Dante Fried Referrals: Dante Fried MD [Primary Care Provider] -
== END 2023-07-11 15:15 | disposition home or self-care (01) ==
PROVIDERS: Emergency Provider Emergency Medicine; PCP Family Medicine; Visit Provider Emergency Medicine
DX: H61.21 Impacted cerumen, right ear (principal); R42 Dizziness and giddiness
CPT/HCPCS: 71045; 80048; 85025; 85610; 85730; 93005; 99284; A4216